=== PATIENT | male | born 1980 | race Caucasian/White ===

== ENCOUNTER 2016-08-03 17:15 | Emergency (ER) | payer MEDICAID, OTHER ==
[~2016-08-03] VITALS: Ht 182.9 cm; Wt 68.0 kg
[2016-08-03] MEDS ORDERED: NS IV 1000 ML 1,000 ML IV ONE (18:25)
[2016-08-03 18:37] LABS: BILIRUBIN,URINE NEGATIVE (NEGATIVE); KETONES,URINE NEGATIVE (NEGATIVE); LEUKOCYTE ESTERASE ,URINE NEGATIVE (NEGATIVE); NITRITE,URINE NEGATIVE (NEGATIVE); PH,URINE 8 (5-9); PROTEIN,URINE NEGATIVE (NEGATIVE); UROBILINOGEN,URINE NORMAL (NORMAL)
--- NOTE | 2016-08-03 18:44 | ED Neurological Problem ---
General Chief Complaint: Neurological Problems Stated Complaint: SEIZURE Nursing Triage Note: PT CO OF RECENT SEIZURES STATES SMOKES POT DAILY, HAVING FREQUENT SEIZURES PAST 5 DAYS, HAS HX OF SEIZURES CHILD, WEAKNESS, DIZZINESS. SLURRED SPEECH. NO INC NOTED, PT NOT POST ICTAL. CO OF AZAR WEARING SUN GLASSES. PT STATES THINKS HE MIGHT HAVE BRAIN CA BUT DOESNT KNOW WHY HE KNOWS THIS. Nursing Sepsis Screen: No Definite Risk Source: patient, family Exam Limitations: no limitations History of Present Illness Time seen by provider: 18:05 Initial Comments This 36 year old man presents to the ER with his fiance and family complaining of frequent generalized seizures over the past 5 days. He is not currently under treatment for seizure disorder. He had seizures when young and just started having them again recently. He complains of severe headache. He is generally weak. He complains of light sensitivity and has sunglasses and a cowboy hat on. He smokes THC daily and has used methamphetamines within the past week. He is not a very willing participant in his exam and gives minimal effort. Allergies and Home Medications Allergies Coded Allergies: Penicillins (Verified Allergy, Mild, 08/03/16) ibuprofen (Verified Adverse Reaction, Mild, NAUSEA, 08/03/16) Home Medications Levetiracetam 500 Mg Tablet #20 500 MG PO BID Prescribed by: JOY CAI on 08/03/162029 Constitutional: see HPI malaise weakness Eyes: See HPI Ears, Nose, Mouth, Throat: no symptoms reported Respiratory: no symptoms reported Cardiovascular: no symptoms reported Gastrointestinal: no symptoms reported Musculoskeletal: no symptoms reported Skin: no symptoms reported Psychiatric/Neurological: See HPI Endocrine: No Symptoms Reported Past Nczwhbf-Qdehck-Sbpuii Hx Patient Social History Alcohol Use: Denies Use Recreational Drug Use: Yes Drug of Choice: POT Smoking Status: Current Everyday Smoker Type Used: Cigarettes Recent Foreign Travel: No Contact w/Someone Who Travel: No Recent Infectious Disease Expo: No Recent Hopitalizations: No Immunizations Up To Date Tetanus Booster (TDap): Less than 5yrs Seasonal Allergies Seasonal Allergies: No Surgeries HX Surgeries: No Respiratory Hx Respiratory Disorders: Yes Respiratory Disorders: Asthma Cardiovascular Hx Cardiac Disorders: Yes Cardiac Disorders: Hypertension Neurological Hx Neurological Disorders: Yes Neurological Disorders: Seizure Disorder Genitourinary Hx Genitourinary Disorders: No Gastrointestinal Hx Gastrointestinal Disorders: No Musculoskeletal Hx Musculoskeletal Disorders: No Endocrine Hx Endocrine Disorders: Yes (HYPOGLYCEMIA) HEENT HX ENT Disorders: No Cancer Hx Cancer: No Psychosocial Hx Psychiatric Problems: No Family Medical History Significant Family History: Heart Disease (Congenital heart defect), Cancer ( Colon, lung), Diabetes, Hypertension, Psychiatric Problems Physical Exam Vital Signs Vital Sign - Last 12Hours 08/03/16 17:35 Temp 99.8 Pulse 74 Resp 20 B/P 120/72 Pulse Ox 96 Capillary Refill : Less Than 3 Seconds General Appearance: WD/WN mild distress (headache and light sensitivity) HEENT: PERRL/EOMI normal ENT inspection TMs normal pharynx normal Neck: normal inspection Respiratory: lungs clear normal breath sounds no respiratory distress no accessory muscle use Cardiovascular: regular rate, rhythm no edema no murmur Gastrointestinal: normal bowel sounds non tender soft Extremities: normal inspection no pedal edema Neurologic/Psychiatric: alert other (Depressed mood, generalized weakness, little effort during exam, mentation a little dulled but patient is able cognition is good enough to formulate joking and sarcasm) Crainal Nerves: normal hearing PERRL Coordination/Gait: normal finger to nose Skin: normal color warm/dry Progress/Results/Core Measures Results/Orders Lab Results Laboratory Tests Test 08/03/16 18:30 08/03/16 18:40 Range/Units Ur Tricyclic Antidepressants Screen NEGATIVE NEGATIVE Urine Amorphous Sediment FEW ETHAN PHOSPHATE H /LPF Urine Amphetamines Screen NEGATIVE NEGATIVE Urine Bacteria NONE /HPF Urine Barbiturates Screen NEGATIVE NEGATIVE Urine Benzodiazepines Screen NEGATIVE NEGATIVE Urine Bilirubin NEGATIVE NEGATIVE Urine Cannabinoids Screen POSITIVE H NEGATIVE Urine Casts NONE /LPF Urine Clarity CLEAR Urine Cocaine Screen NEGATIVE NEGATIVE Urine Color YELLOW Urine Crystals PRESENT H /LPF Urine Culture Indicated NO Urine Glucose (UA) NEGATIVE NEGATIVE Urine Ketones NEGATIVE NEGATIVE Urine Leukocyte Esterase NEGATIVE NEGATIVE Urine Methadone Screen NEGATIVE NEGATIVE Urine Methamphetamines Screen NEGATIVE NEGATIVE Urine Mucus NEGATIVE /LPF Urine Nitrite NEGATIVE NEGATIVE Urine Opiates Screen POSITIVE H NEGATIVE Urine Oxycodone Screen POSITIVE H NEGATIVE Urine Phencyclidine Screen NEGATIVE NEGATIVE Urine Propoxyphene Screen NEGATIVE NEGATIVE Urine Protein NEGATIVE NEGATIVE Urine RBC NONE /HPF Urine RBC (Auto) NEGATIVE NEGATIVE Urine Specific Wallace 1.015 L 1.016-1.022 Urine Urobilinogen NORMAL NORMAL MG/DL Urine WBC NONE /HPF Urine pH 8 5-9 Alanine Aminotransferase (ALT/SGPT) 14 0-55 U/L Albumin 3.9 3.2-4.5 G/DL Alkaline Phosphatase 74 40-136 U/L Ammonia 47 H 11-32 UMOL/L Anion Gap 10 5-14 MMOL/L Aspartate Amino Transf (AST/SGOT) 11 5-34 U/L BUN/Creatinine Ratio 17 Basophils # (Auto) 0.1 0.0-0.1 10^3/uL Basophils (%) (Auto) 1 0-10 % Blood Urea Nitrogen 14 7-18 MG/DL Calcium Level 8.9 8.5-10.1 MG/DL Carbon Dioxide Level 25 21-32 MMOL/L Chloride Level 102 98-107 MMOL/L Creatinine 0.82 0.60-1.30 MG/DL Eosinophils # (Auto) 0.3 0.0-0.3 10^3/uL Eosinophils (%) (Auto) 5 0-10 % Estimat Glomerular Filtration Rate > 60 Glucose Level 107 H 70-105 MG/DL Hematocrit 42 40-54 % Hemoglobin 14.4 13.3-17.7 G/DL Lymphocytes # (Auto) 2.6 1.0-4.0 X 10^3 Lymphocytes (%) (Auto) 39 12-44 % Magnesium Level 2.2 1.8-2.4 MG/DL Mean Corpuscular Hemoglobin 32 25-34 PG Mean Corpuscular Hemoglobin Concent 34 32-36 G/DL Mean Corpuscular Volume 92 80-99 FL Mean Platelet Volume 10.5 H 7.4-10.4 FL Monocytes # (Auto) 0.7 0.0-1.0 X 10^3 Monocytes (%) (Auto) 11 0-12 % Neutrophils # (Auto) 2.9 1.8-7.8 X 10^3 Neutrophils (%) (Auto) 45 42-75 % Platelet Count 222 130-400 10^3/uL Potassium Level 4.0 3.6-5.0 MMOL/L Red Blood Count 4.53 4.35-5.85 10^6/uL Red Cell Distribution Width 13.6 10.0-14.5 % Serum Alcohol < 10 <10 MG/DL Sodium Level 137 135-145 MMOL/L TSH Love Testing 1.13 0.35-4.94 UIU/ML Total Bilirubin 0.2 0.1-1.0 MG/DL Total Creatine Kinase 49 30-200 U/L Total Protein 6.4 6.4-8.2 G/DL White Blood Count 6.6 4.3-11.0 10^3/uL My Orders Orders-JOY CALVO MD Saline Lock/Iv-Start (08/03/16 18:13) Alcohol (08/03/16 18:13) Cbc With Automated Diff (08/03/16 18:13) Comprehensive Metabolic Panel (08/03/16 18:13) Drug Screen Stat (Urine) (08/03/16 18:13) Magnesium (08/03/16 18:13) Ua Culture If Indicated (08/03/16 18:13) Ammonia (08/03/16 18:25) Thyroid Analyzer (08/03/16 18:25) Ns Iv 1000 Ml (Sodium Chloride 0.9%) (08/03/16 18:25) Creatine Kinase (08/03/16 18:27) Ct Head/Cervical Spine Wo (08/03/16 18:49) Ketorolac Injection (Toradol Injection) (08/03/16 19:45) Ketorolac Injection (Toradol Injection) (08/03/16 19:39) Levetiracetam Tablet (Keppra Tablet) (08/03/16 20:15) Medications Given in ED Current Medications Medications Dose Ordered Sig/Ingris Route Start Time Stop Time Status Last Admin Dose Admin Ketorolac Tromethamine 30 mg ONCE ONCE IVP 08/03/16 19:45 08/03/16 19:46 DC 08/03/16 19:42 30 MG Levetiracetam 500 mg ONCE ONCE PO 08/03/16 20:15 08/03/16 20:16 DC 08/03/16 20:13 500 MG Sodium Chloride 1,000 ml @ 0 mls/hr Q0M ONCE IV 08/03/16 18:25 08/03/16 18:27 DC 08/03/16 19:11 1,000 MLS/HR Vital Signs/I&O Vital Sign - Last 12Hours 08/03/16 08/03/16 17:35 20:41 Temp 99.8 99.8 Pulse 74 70 Resp 20 20 B/P 120/72 Pulse Ox 96 97 Blood Pressure Mean: 88 Progress Note : Progress Note Workup was relatively unremarkable. CT of the head was normal. Patient was given IV fluids and Toradol for treatment of headache. Symptoms improved and he was able to independently ambulate across the unit to go to the restroom. Keppra was given prior to dismissal. Patient was encouraged strongly to establish with a primary care provider and seek referral to a neurologist. He was also strongly encouraged to refrain from illicit drug use in the future. He was dismissed in stable condition. He exhibited no seizure-like activity while in the ER. Diagnostic Imaging Diagonstic Imaging: CT Plain Films/CT/US/NM/MRI: c-spine, head Comments CT head and c-spine viewed by me and report reviewed. See report below. NAME: ELODIA DELGADO [facility] REC#: [id number] PT STATUS: REG ER : 1980 PHYSICIAN: JOY CALVO MD ADMIT DATE: 08/03/16/ER Draft Date of Exam:08/03/16 CT HEAD/CERVICAL SPINE WO PROCEDURE: CT head and CT cervical spine without contrast. TECHNIQUE: Multiple contiguous axial images were obtained through the brain and cervical spine without the use of intravenous contrast. Sagittal and coronal reformations through the cervical spine were then performed. INDICATION: Seizures and falls. Severe headache. CORRELATION STUDY: None. FINDINGS: CT HEAD: Ventricles and sulci are unremarkable. No midline shift or mass effect. Normal mark-white differentiation. No intracranial hemorrhage. Bony calvarium is intact. Paranasal sinuses are relatively clear. CT CERVICAL SPINE: There is straightening of the normal cervical lordosis. There is slight anterior wedging at C4, C5, and C6 levels, appearing to be nonacute. No acute-appearing compression deformity. Disc space is mildly narrowed in the midcervical spine. No significant endplate osteophyte formation or osseous narrowing of the foramina and/or spinal canal. Posterior elements are intact. Odontoid is intact. IMPRESSION: CT HEAD: 1. Negative for acute intracranial abnormality. CT CERVICAL SPINE: 1. Negative for acute fracture or traumatic subluxation. Dictated on workstation # [id number] Dict: 08/03/161925 Trans: 08/03/161931 AS6 [id number] Interpreted by: FANTA NICOLE DO Departure Impression Impression: Primary Impression: Seizure-like activity Additional Impressions: Altered mental status Qualified Code: R41.82 - Altered mental status, unspecified Polysubstance abuse Acute headache Qualified Code: R51 - Headache Disposition: 01 HOME, SELF-CARE Condition: Improved Departure-Patient Inst. Decision time for Depature: 20:27 Referrals: NO,LOCAL PHYSICIAN (PCP/Family) Primary Care Physician Patient Instructions: Seizures, Adult (DC) Add. Discharge Instructions: Establish with a primary care provider as soon as possible. Seek referral to a neurologist. Use Keppra as prescribed in the meantime. Discontinue use of recreational drugs such as marijuana, methamphetamines, etc. Return to the ER if symptoms worsen. Use Tylenol and/or Ibuprofen for pain. You may contact a hospital nursing home social worker, [facility], or the [facility] of [facility] for assistance with substance abuse treatment. Do not drive or operate machinery until cleared by a doctor. All discharge instructions reviewed with patient and/or family. Voiced understanding. Scripts Levetiracetam (Keppra)500 Mg [id number] Mg PO BID #20 TAB Prov:JOY CALVO MD 08/03/16 JOY CALVO MD Aug 03, 2016 18:44
[2016-08-03 18:53] LABS: BASOPHILS # (AUTO) 0.1 10^3/uL (0.0-0.1); BASOPHILS % (AUTO) 1 % (0-10); EOSINOPHILS # (AUTO) 0.3 10^3/uL (0.0-0.3); EOSINOPHILS % (AUTO) 5 % (0-10); LYMPHOCYTES # (AUTO) 2.6 X 10^3 (1.0-4.0); LYMPHOCYTES % (AUTO) 39 % (12-44); MEAN CORPUSCULAR HEMOGLOBIN 32 PG (25-34); MEAN CORPUSCULAR HGB CONC 34 G/DL (32-36); MEAN CORPUSCULAR VOLUME 92 FL (80-99); MEAN PLATELET VOLUME 10.5 FL (7.4-10.4); MONOCYTES # (AUTO) 0.7 X 10^3 (0.0-1.0); MONOCYTES % (AUTO) 11 % (0-12); NEUTROPHILS # (AUTO) 2.9 X 10^3 (1.8-7.8); NEUTROPHILS % (AUTO) 45 % (42-75); PLATELET COUNT 222 10^3/uL (130-400); RED BLOOD COUNT 4.53 10^6/uL (4.35-5.85); RED CELL DISTRIBUTION WIDTH 13.6 % (10.0-14.5); WHITE BLOOD COUNT 6.6 10^3/uL (4.3-11.0)
[2016-08-03 19:12] LABS: ALANINE AMINOTRANSFERASE 14 U/L (0-55); ALBUMIN 3.9 G/DL (3.2-4.5); AMMONIA 47 UMOL/L (11-32); ANION GAP 10 MMOL/L (5-14); ASPARTATE AMINO TRANSFERASE 11 U/L (5-34); BILIRUBIN,TOTAL 0.2 MG/DL (0.1-1.0); BLOOD UREA NITROGEN 14 MG/DL (7-18); BUN/CREATININE RATIO 17; CALCIUM 8.9 MG/DL (8.5-10.1); CARBON DIOXIDE 25 MMOL/L (21-32); CHLORIDE 102 MMOL/L (98-107); CREATINE KINASE 49 U/L (30-200); CREATININE SERUM 0.82 MG/DL (0.60-1.30); GFR ESTIMATED > 60; GLUCOSE 107 MG/DL (70-105); MAGNESIUM 2.2 MG/DL (1.8-2.4); SODIUM 137 MMOL/L (135-145); TOTAL PROTEIN 6.4 G/DL (6.4-8.2)
[2016-08-03 19:14] LABS: ALCOHOL < 10 MG/DL (<10)
--- NOTE | 2016-08-03 19:32 | Diagnostic Imaging Report ---
PROCEDURE: CT head and CT cervical spine without contrast. TECHNIQUE: Multiple contiguous axial images were obtained through the brain and cervical spine without the use of intravenous contrast. Sagittal and coronal reformations through the cervical spine were then performed. INDICATION: Seizures and falls. Severe headache. CORRELATION STUDY: None. FINDINGS: CT HEAD: Ventricles and sulci are unremarkable. No midline shift or mass effect. Normal mark-white differentiation. No intracranial hemorrhage. Bony calvarium is intact. Paranasal sinuses are relatively clear. CT CERVICAL SPINE: There is straightening of the normal cervical lordosis. There is slight anterior wedging at C4, C5, and C6 levels, appearing to be nonacute. No acute-appearing compression deformity. Disc space is mildly narrowed in the midcervical spine. No significant endplate osteophyte formation or osseous narrowing of the foramina and/or spinal canal. Posterior elements are intact. Odontoid is intact. IMPRESSION: CT HEAD: 1. Negative for acute intracranial abnormality. CT CERVICAL SPINE: 1. Negative for acute fracture or traumatic subluxation. Dictated by: Dictated on workstation # [id number]
[2016-08-03] MEDS ORDERED: KETOROLAC 30 MG/ML VIAL ONE (19:39)
[2016-08-03] MEDS ORDERED: KETOROLAC 30 MG/ML VIAL IVP ONE (19:45)
[2016-08-03] MEDS ORDERED: LEVETIRACETAM 500 MG (KEPPRA) TAB PO ONE (20:15)
[2016-08-03] MEDS ORDERED: LEVE500T99 PO (20:30)
[2016-08-03 20:41] VITALS: BP 117/74
== END 2016-08-03 20:38 | disposition home or self-care (01) ==
LOC: EDUNIT# 17:15 → ER 17:18
DX: R41.82 Altered mental status, unspecified (principal); G40.909 Epilepsy, unspecified, not intractable, without status epilepticus; F12.10 Cannabis abuse, uncomplicated; F19.10 Other psychoactive substance abuse, uncomplicated; I10 Essential (primary) hypertension; F17.210 Nicotine dependence, cigarettes, uncomplicated
CPT/HCPCS: 36415; 70450; 72125; 80053; 80306; 80320; 81000; 82140; 82550; 83735; 84443; 85025; 96361; 96374